=== PATIENT | male | born 1945 | race Caucasian/White ===

== ENCOUNTER 2016-10-26 11:21 | Inpatient (IN) | payer MEDICARE ==
[~2016-10-26] VITALS: Ht 182.9 cm; Wt 77.5 kg
[2016-10-26] VITALS (9 sets, daily range): BP systolic 127–156; BP diastolic 64–80
[~2016-10-26 11:21] MED LIST: ADVAIR DISK1 IN; ADVAIR HFA IN; ALDACTONE25 MG PO; ALTACE2.5 M1 PO; ASPIRIN ADULT L81 MG PO; ASPIRIN81 MG OR; COREG6.25 MG PO; DIGOXIN0.25 MG; DIOVAN80 MG OR; FENOFIBRATE54 MG PO; FLONASE NASAL50 MCG; IPRATROPIU0.5 MG/3 M NEB; LEVAQUIN750 MG PO; MEDDOSEPAK PO; NEXIUM 24HR20 MG PO; NEXIUM40 MG PO; NICOTINE EX; NITROGLYCER0.2 MG/H1 SL; PERCOCET 10/31 COMBO PO; PLAVIX75 MG PO; PREDNISONE10 MG PO; PREDNISONE20 MG PO; PROAIR HFA IN; PROAIR HFA PO; SIMVASTATIN40 MG PO; STERAPRED DS10 MG PO; STIOLTO RESPIMA1 AER IN; SYMBICORT1 AE1 IN; TESSALON PER100 MG PO; TORSEMIDE20 M1 PO; XOPENEX1.25 MG IN; ZETIA10 MG OR; ZITHROMAX500 MG PO; ZOCOR20 MG OR; ZPAK PO
--- NOTE | 2016-10-26 11:21 | NUR ---
PT TO ROOM 9 VIA STRETCHER BY EMS. PT ARRIVES IN RESP DISTRESS.
--- NOTE | 2016-10-26 11:30 | NUR ---
SAO2 DOWN TO 76% WHEN O2 TURNED OFF
--- NOTE | 2016-10-26 11:43 | NUR ---
PT IMMEDIATELY TO ROOM 9 VIA STRETCHER BY EMS. PT DISPLAYS LABORED BREATHING, ACCESSORY MUSCLE USE AND TRIPOD POSITIONING NOTED.
[2016-10-26 11:52] LABS: HEMATOCRIT 43.5 % (39.0-50.0); HEMOGLOBIN 14.3 g/dl (14.0-18.0); IMMATURE GRANULOCYTES 0.4 % (0.0-1.0); MEAN CELL VOLUME 91.8 fL CALC (80.0-100.0); MEAN CORPUSCULAR HGB 30.2 pG CALC (26.0-32.0); MEAN CORPUSCULAR HGB CONC 32.9 g/L CALC (32.0-36.0); NEUT# 10.77 thou/uL (1.82-7.42); RED BLOOD COUNT 4.74 mill/uL (4.70-6.10)
[2016-10-26 12:21] LABS: ALBUMIN 4.4 g/dL (3.2-5.0); ALKALINE PHOSPHATASE 47 u/l (38-126); BILIRUBIN, TOTAL 1.2 mg/dL (0.0-1.4); BUN 10 mg/dL (8-23); BUN/CREATININE RATIO 11 (12-20 (CALC)); CALCIUM 9.8 mg/dL (8.4-10.2); CARBON DIOXIDE 27 mmol/l (22-30); CHLORIDE 102 mmol/l (95-108); CREATININE 0.9 mg/dL (0.7-1.3); GFR > 60 ML/MIN (>=60 (CALC)); GFR FOR AFR.AMER. > 60 ML/MIN (>=60 (CALC)); GLUCOSE 122 mg/dL (82-115); SGOT/AST 23 u/l (19-48); SGPT/ALT 32 u/l (11-66); SODIUM 138 mmol/l (137-146); TOTAL PROTEIN 7.1 g/dL (6.3-8.2)
[2016-10-26 12:22] LABS: ANION GAP 14 (6-22 (CALC)); POTASSIUM 5.4 mmol/l (3.5-5.1)
[2016-10-26 12:32] LABS: MYOGLOBIN 102 ng/mL (0 - 121)
--- NOTE | 2016-10-26 12:40 | NUR ---
PT RESTING ON STRETCHER, BIPAP IN USE. AT BEDSIDE. PT BREATHING UNLABORED AT THIS TIME. VSS AT THIS TIME. MOUTH CARE PROVIDED WITH WET ORAL SWABS. CALL LIGHT IN REACH.
--- NOTE | 2016-10-26 13:30 | NUR ---
ADJUSTED PT POSITION IN BED. PROVIDED MOUTH CARE PER PT REQUEST. DENIES FURTHER COMPLAINTS. THANKS STAFF FOR CARE.
--- NOTE | 2016-10-26 14:00 | NUR ---
BIPAP D/C PER ORDER BY DR GALICIA. PT TOLERATING WELL. NO DISTRESS NOTED.
[2016-10-26] MEDS ORDERED: AZITHROMYCIN1 GM PO (14:12)
[2016-10-26] MEDS ORDERED: LASIX 20 MG20 MG/TAB PO (14:13)
[2016-10-26] MEDS ORDERED: CARVEDILOL6.25 MG PO (14:13)
[2016-10-26] MEDS ORDERED: PROAIR RES108 MCG/AC NEB (14:14)
[2016-10-26] MEDS ORDERED: NEXIUM2.5 MG PO (14:14)
--- NOTE | 2016-10-26 14:35 | NUR ---
PT RESTING ON STRETCHER. PT TOLERATING NC WELL. NO DISTRESS NOTED. VSS.
--- NOTE | 2016-10-26 14:47 | NUR ---
PT RESTING ON STRETCHER. IVF INFUSING. DENIES COMPLAINTS. CALL LIGHT IN REACH.
--- NOTE | 2016-10-26 15:02 | NUR ---
PT C/O "NOT ABLE TO GET ENOUGH AIR". RR 22. RESP EVEN AND UNLABORED. NO RETRACTIONS. SLIGHT ACCESSORY MUSCLE USE. LUNG SOUNDS WHEEZING THROUGHOUT. SAO2 100% ON 2L NC. NOTIFIED.
--- NOTE | 2016-10-26 15:45 | NUR ---
PT COMPLETED NEB TX. PT CONTINUES TO REPORT, "I JUST FEEL LIKE I CAN'T GET AIR." SPO2 100% RR WNL. DR GALICIA NOTIFIED. PT STATES "I JUST WANT TO WEAR THE BIPAP AGAIN". DR GALICIA NOTIFIED. RESP TX CALLED. I WANT "
--- NOTE | 2016-10-26 16:00 | NUR ---
PT PLACED BACK ON BIPAP MACHINE. TOLERATING WELL.
--- NOTE | 2016-10-26 17:05 | NUR ---
REPORT PROVIED TO KARLO FARFAN ON ICU.
--- NOTE | 2016-10-26 17:29 | NUR ---
PT TRANSFERRED TO ICU IN STABLE CONDITION VIA STRETCHER.
--- NOTE | 2016-10-26 17:30 | NUR ---
PT ARRIVED TO ROOM 8 VIA STRETCHER AND ONE PERSON ASSISTANCE FROM THE ER. PT AMBULATORY FROM STRETCHER TO BED. WEIGHT IS 85.6KG ON BED SCALE. PT IS ALERT AND ORIENTATED. FALLS SHEET AND BELONGINGS SHEET SIGNED. PT ORIENTATED TO ROOM, RIGHTS, RESPONSIBILITIES AND CALL LIGHT. ASSESSMENT PERFORMED, HISTORY OBTAINED. PT IS ON 2L NC AT THIS TIME. STATES "I WILL WAIT ON BIPAP, I FEEL OK WITH THE NC." PT IS USING ACCESSORY MUSCLES TO BREATHE. RESPIRATIONS ARE LABORED BUT EVEN. 02 SAT IS 97%. WILL CONTINUE TO MONITOR.
--- NOTE | 2016-10-26 18:50 | NUR ---
RECEIVED REPORT FROM DAHLIA BETANCOURT RN; ASSUMED PT CARE; FAMILY AT BEDSIDE SAYING GOOD BY TO PT; INTRODUCED SELF TO PT; DENIES ANY NEEDS AT THIS TIME; RESP EVEN AND UNLABORED; ENCOURAGED TO CALL IF NEEDED. WILL CONTINUE TO MONITOR.
--- NOTE | 2016-10-26 20:10 | NUR ---
PT IS ALERT AND ORIENTED X3; DENIES ANY PAIN OR SOB; C/O OF SHOE HANDLER COUGH AT THIS TIME AND IS REQUESTING SOMETHIG TO RELIEVE IT; RESP ARE EVEN AND UNLABORED; LUNGS ARE WHEEZE ON AUSCULTATION; ABDOMINAL BREATHING NOTED; TREMORS NOTED ON BUE; SKIN IS INTACT; AFEBRILE, SR ON MONITOR; BP 129/67, 100% ON 2LPM; EXPLAINED CALL CARVAJAL AND PLAN OF CARE; VOICES UNDERSTANDING WILL CONTINUE TO MONITOR.
--- NOTE | 2016-10-26 23:39 | NUR ---
PT A&O X3; RESP EVEN AND UNLABORED; DENIES NEEDS OR SOB OR PAIN, RECEIVED A BREATHING TX AND STATES "I CAN BREATH BETTER NOW." OCCASIONALLY INFANTRY WEAPONS OFFICER COUGH, MEDICATED WITH ROBITUSSIN, VSS, O2SATS 99% ON 2LPM NC; CALL CARVAJAL IS AT REACH, WILL CONTINUE TO MONITOR.
[2016-10-27] VITALS (13 sets, daily range): BP systolic 102–165; BP diastolic 50–72
--- NOTE | 2016-10-27 02:00 | NUR ---
PT AWAKE, A/O X3; REQUESTING A CUP OF BLACK COFFEE; DENIES SOB OR DISCOMFORT; VOIDED 300 OF CLEAR YELLOW URINE AT THIS TIME; RESP ARE UNLABORED; SATTING 100% ON 2LPM NC. CALL LIGHT AT REACH; WILL CONTINUE TO MONITOR.
--- NOTE | 2016-10-27 03:50 | NUR ---
PT AWAKE; REQUESTING A CUP OF BLACK COFFEE; LAB TECHN IN DRAWING BLOOD SAMPLES; CONTINUES ART HISTORY INSTRUCTOR COUGHING OCCASIONALLY; VSS, AFEBRILE; SATTING AT 95% 2LPM NC; RESP ARE EVEN AND UNLABORED; SKIN NOTED ON LUE; STATES "IT IS FROM EDGE OF BP CUFF; PLACED A GAUZE; SEE PICTURE ON CHART FOR DETAILS. CALL CARVAJAL AT BEDSIDE; WILL CONTINUE TO MONITOR.
[2016-10-27 05:12] LABS: HEMATOCRIT 40.2 % (39.0-50.0); HEMOGLOBIN 13.4 g/dl (14.0-18.0); IMMATURE GRANULOCYTES 0.4 % (0.0-1.0); MEAN CELL VOLUME 91.4 fL CALC (80.0-100.0); MEAN CORPUSCULAR HGB 30.5 pG CALC (26.0-32.0); MEAN CORPUSCULAR HGB CONC 33.3 g/L CALC (32.0-36.0); NEUT# 8.1 thou/uL (1.82-7.42); RED BLOOD COUNT 4.4 mill/uL (4.70-6.10); RED CELL DISTRI WIDTH 16.7 % (11.5-15.5)
--- NOTE | 2016-10-27 05:30 | NUR ---
[facility] IV SITE; CATHETER INTACT; IV SITE FREE OF REDNESS OR EDEMA; NEW IV STARTED IN LT HAND #20G SALINE LOCK; FLUSHED WELL; PT TOLERATED ACTIVITY WELL; RESP ARE EVEN AND UNLABORED; WILL PROVIDE A RECLINER PER PT REQUEST.
[2016-10-27 05:40] LABS: ANION GAP 15 (6-22 (CALC)); BUN 16 mg/dL (8-23); BUN/CREATININE RATIO 18 (12-20 (CALC)); CALCIUM 9.9 mg/dL (8.4-10.2); CARBON DIOXIDE 27 mmol/l (22-30); CHLORIDE 101 mmol/l (95-108); CREATININE 0.9 mg/dL (0.7-1.3); GFR > 60 ML/MIN (>=60 (CALC)); GFR FOR AFR.AMER. > 60 ML/MIN (>=60 (CALC)); GLUCOSE 125 mg/dL (82-115); SODIUM 138 mmol/l (137-146)
--- NOTE | 2016-10-27 06:45 | NUR ---
REPORT RECEIVED FROM KARLO DONALD. PT IS AWAKE AND SITTING UPRIGHT IN BED. PT DOES NOT APPEAR TO BE IN DISTRESS OR SHOW ANY S/S OF SOB. 02 @2L NC SPO2 IS >92%. CALL LIGHT WITHIN REACH. WILL CONTINUE TO MONITOR.
--- NOTE | 2016-10-27 08:30 | NUR ---
PT GIVEN AM MEDICATION AT THIS TIME. OOB TO CHAIR, PT STATES HE HAS ANXIETY. WILL NOTIFY
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
--- NOTE | 2016-10-27 17:05 | NUR ---
PT HAS SAT UPRIGHT IN CHAIR FOR ENTIRE SHIFT. VSS. WEARING O2 @2L VIA NC. VOICES NO CONCERN. WILL CONTINUE TO MONITOR.
--- NOTE | 2016-10-27 18:50 | NUR ---
RECEIVED REPORT FROM DAVEY BETANCOURT RN; ASSUMED PT CARE.
--- NOTE | 2016-10-27 19:00 | NUR ---
PT C/O BURNING FEELING ON IV SITE; ZITROMAX INFUSING AT RX RATE; FLUSHED SITE WITH NS FLUSH, FLUSHES WELL WITH GOOD ASPIRATION; NO REDNESS OR SIGNS OF INFILTRATION/EXTRAVASATION NOTED; SLOWED INFUSION WILL CONTINUE TO MONITOR.
--- NOTE | 2016-10-27 19:35 | NUR ---
PT FOUND SITTING UP IN THE RECLINER; AT BEDSIDE; STATES "WITH ANY ACTIVITY I FEEL THAT I CAN'T BREATHE." VSS AT THIS TIME; 02SATS 99% ON 2LPM VIA NC; EXPLAINED MED SCHEDULE; VOICES UNDERSTANDING; PROVIDED A SPECIMEN CUP FOR SPUTUM SAMPLE; STATES HAS BEEN COUGHING UP SOME THICK GREEN SPUTUM; BILATERAL DIMINISHED LUNGS SOUNDS ON AUSCULTATION; CALL CARVAJAL IS AT REACH. WILL CONTINUE TO MONITOR.
--- NOTE | 2016-10-27 21:17 | NUR ---
CONTINUES COMPLAINING OF BURNING FEELING ON IV SITE; FLUSHED IV WITH NS; NO REDNESS INFILTRATION OR EXTRAVASATION NOTED; SLOWED THE INFUSION RATE MORE AND PUT A ICE PACK ON SITE, USED A PILLOW CASE BARRIER; WILL CONTINUE TO MONITOR CLOSELY.
--- NOTE | 2016-10-27 22:15 | NUR ---
RT IN PT ROOM ADMINISTERING A BREATHING TX.
[2016-10-28] VITALS (9 sets, daily range): BP systolic 135–164; BP diastolic 66–89
--- NOTE | 2016-10-28 00:27 | NUR ---
MEDICATED WITH SOLUMEDROL PER EMAR; PT LYING ON LEFT SIDE; REFUSES TO WEAR BP CUFF STATES "CUFF IS TEARING THE SKIN ON MY ARM." CHECKED BP AND REMOVED BP REQUESTED BY PT. SR-SB ON MONITOR WITH HR 50-72; DENIES PAIN AND SOB; APPEARS IN NO DISTRESS AT THIS TIME; RESP EVEN AND UNLABORED; FLUSHED IV SITE AND FLUSHES WELL DENIES BURNING/DISCOMFORT AT SITE, NO SIGNS OF EDEMA NOTED; CALL CARVAJAL IS AT REACH.
--- NOTE | 2016-10-28 02:10 | NUR ---
ASSISTED PT OOB TO BSC; VOIDED 400 ML OF CLEAR PALE URINE; IS SITTING ON SIDE OF BED AT THIS TIME; STARTING CALLING VIC, WHEN ASKED WHO IS THRESA, STATED "MY ." SEEMED CONFUSE, AND REORIENTED HIM TO ENVIRONMENT; STATED NAME, , BUT THOUGHT THAT WAS AT HOME WITH STATED "I THOUGHT YOU WERE THRESA AND THAT I WAS AT HOME, BUT NOW I KNOW I AM AT THE HOSPITAL." RESP ARE EVEN AND LABORED; INSTRUCTED ON BREATHING TECHN; CALL CARVAJAL IS AT REACH WILL COTINUE TO MONITOR.
--- NOTE | 2016-10-28 03:00 | NUR ---
PT MOVED FROM R8 TO B5 D/T MONITOR NOT COMMUNICATING SIGNAL TO NARROW FABRIC CALENDERER; CELL TENDER HELPER NOTIFIED; PT TOLERATED ACTIVITY WELL; SATTING AT 99% ON 2L NC AT THIS TIME; BP 146/80; MILD LABORED RESPIRATIONS NOTED; WILL CONTINUE TO MONITOR.
--- NOTE | 2016-10-28 04:35 | NUR ---
LYING SUPINE IN BED WITH EYES CLOSED; RESPONDS TO STIMULI; OFFERS NO NEW COMPLAINTS; RESP ARE EVEN AND UNLABORED; SOME LOW VOLTAGE TECHNICIAN COUGH NOTED; SR ON MONITOR, HR 76, O2SATS >94% ON 2L NC. WILL CONTINUE TO MONITORL.
--- NOTE | 2016-10-28 06:13 | NUR ---
MEDICATED PT WITH SOLUMEDROL PER EMAR; PT SITTING UP ON SIDE OF BED IN TRIPOD POSITION; RESP ARE EVEN AND LABORED; O2SATS 95%; VOIDED 300 ML OF CLEAR YELLOW URINE; INSTRUCTED ON BREATHING EXERCISES; PT DEMOSTRATING BREATHING TECHN; WILL CONTINUE TO MONITOR. IV SITE REMAINS PATENT AND FLUSHES WELL NO SIGNS OF EDEMA OR REDNESS.
--- NOTE | 2016-10-28 07:00 | NUR ---
REPORT RECIEVED FROM SHABANA RN; PT SITTING UP AT BEDSIDE WITH BREATHING TX IN PROGRESS; NO S/S OF DISTRESS NOTED; PT DENIES ANY NEEDS AT THIS TIME; PT ENCOURAGED TO CALL FOR ANY ASSISTANCE NEEDED; CALL LIGHT WITHIN REACH; WILL CONTINUE TO MONITOR
[2016-10-28 07:05] LABS: ANION GAP 15 (6-22 (CALC)); BUN 27 mg/dL (8-23); BUN/CREATININE RATIO 29 (12-20 (CALC)); CALCIUM 9.6 mg/dL (8.4-10.2); CARBON DIOXIDE 26 mmol/l (22-30); CHLORIDE 103 mmol/l (95-108); CREATININE 0.9 mg/dL (0.7-1.3); GFR > 60 ML/MIN (>=60 (CALC)); GFR FOR AFR.AMER. > 60 ML/MIN (>=60 (CALC)); GLUCOSE 132 mg/dL (82-115); MAGNESIUM 2.4 mg/dL (1.6-2.3); SODIUM 139 mmol/l (137-146)
[2016-10-28 07:09] LABS: POTASSIUM 5.3 mmol/l (3.5-5.1)
--- NOTE | 2016-10-28 08:35 | NUR ---
PT MEDICATED WITH AM MEDS AT THIS TIME; ASSESSMENT COMPLETED; #20 TO LH FLUSHED W/O RESISTANCE; PT DENIES ANY PAIN OR SOB AT THIS TIME; PT STATES "I MIGHT WANT TO TRY WEARING THAT BREATHING MACHINE LATER"; PT DENIES ANY OTHER NEEDS AT THIS TIME; CALL LIGHT WITHIN REACH; WILL CONTINUE TO MONITOR
--- NOTE | 2016-10-28 10:21 | NUR ---
PT RESTING IN BED; NO S/S OF DISTRESS NOTED; O2 NC IN PLACE; PT DENIES ANY PAIN OR SOB AT THIS TIME; SR 77 ON BRANCH OPERATION EVALUATION MANAGER; VSS; CALL LIGHT WITHIN REACH; WILL CONTINUE TO MONITOR
--- NOTE | 2016-10-28 10:30 | NUR ---
PRELIMINARY BLOOD CULTURES GROWING GRAM POSITIVE COCCI. PATIENT CURRENTLY HAS SOME COVERAGE WITH AZITHROMYCIN AND ROCEPHIN. CALLED RESULTS TO DR HARO.
--- NOTE | 2016-10-28 11:42 | NUR ---
Vancomycin dosing Age: 71 years Weight: 85.6 kg Height: 182.88 cm Gender: Male SCR: 0.9 mg/dl Dosing weight: 85.6 kg IBW: 77.60 kg CRCL (ml/min): 82.6 William (hr-1): 0.073 Half-life (hrs): 9.50 Vd (liters): 59.92 (factor: 0.7 L/kg) Vancomycin 1250 mg q12 hrs to produce a predicted peak of 33 mcg/ml and a predicted trough of 16 mcg/ml based on (Population-based pharmacokinetic analysis). Vancomycin trough on 10/29/16 at 2330, 30 minutes prior to dose.
--- NOTE | 2016-10-28 14:25 | NUR ---
FROM ICU VIA WHEELCHAIR ACCOMPANIED BY DAQUAN DIETRICH. PT AMBULATED TO BED WITH STEADY GAIT. EXERTIONAL SOB NOTED. VOICES NO NEEDS AT THIS TIME. ORIENTED TO ROOM AND CALL SYSTEM. SAFETY PRECAUTIONS REINFORCED. BED IN LOWEST POSITION WITH WHEELS LOCKED. CALL LIGHT WITHIN REACH. WILL CONTINUE TO MONITOR.
--- NOTE | 2016-10-28 15:30 | NUR ---
SITTING IN BEDSIDE RECLINER. MEDICATED WITH ROBITUSSIN PO FOR C/O PRODUCTIVE COUGH. PO FLUIDS OFFERED. CALL LIGHT WITHIN REACH. WILL CONTINUE TO MONITOR.
--- NOTE | 2016-10-28 21:30 | NUR ---
PT RESTING IN RECLINER WITH SPOUSE AT BEDSIDE;PT DENIES ANY PAINS OR DISCOMFORTS AT THIS TIME;02 ON @ 2 LITERS HUMIDIFIED VIA NC,PURSED LIP BREATHING TECHNIQUE RE-EDUCATED;IV SITE TO LEFT HAND FLUSHED AND PATENT;PRODUCTIVE COUGH NOTED;PTS RIGHT ARM NOT TO BE USED DUE TO PRIOR ULNA TRANSPLANT;ASSESSMENT COMPLETED;SKIN TEAR TO LEFT UPPER ARM,DRESSING CDI;SAFETY PRECAUTIONS REINFORCED;PT EDUCATED TO CALL FOR ASSISTANCE IF NEEDED;CALL LIGHT WITHIN REACH;WILL CONTINUE TO MONITOR
--- NOTE | 2016-10-29 00:15 | NUR ---
PT APPEARS TO BE SLEEPING AT THIS TIME;WOKE PT TO ADMINISTER SCHEDULED MEDICATION;PT DENIES ANY PAIN;RESPIRATIONS EVEN AND UNLABORED ON 02 @ 2 LITERS HUMIDIFIED;URINAL EMPTIED OF 350CC OF CLEAR,YELLOW URINE;ADDITIONAL BLANKETS PROVIDED;FALL PRECAUTIONS IN PLACE;BED IN LOWEST POSITION WITH CALL LIGHT IN REACH;WILL CONTINUE TO MONITOR
[2016-10-29 05:42] VITALS: BP 150/78
--- NOTE | 2016-10-29 05:45 | NUR ---
PT RESTING IN RECLINER;PT DENIES ANY PAIN OR DISCOMFORTS;RESPIRATIONS EVEN AND UNLABORED ON 02 @ 2;VS OBTAINED;URINAL EMPTIED OF CLEAR,YELLOW URINE;PT DENIES ANY OTHER NEEDS AT THIS TIME;CALL LIGHT WITHIN REACH;WILL CONTINUE TO MONITOR
[2016-10-29 07:04] LABS: ANION GAP 13 (6-22 (CALC)); BUN 26 mg/dL (8-23); BUN/CREATININE RATIO 32 (12-20 (CALC)); CALCIUM 9.5 mg/dL (8.4-10.2); CARBON DIOXIDE 28 mmol/l (22-30); CHLORIDE 101 mmol/l (95-108); CREATININE 0.8 mg/dL (0.7-1.3); GFR > 60 ML/MIN (>=60 (CALC)); GFR FOR AFR.AMER. > 60 ML/MIN (>=60 (CALC)); GLUCOSE 130 mg/dL (82-115); POTASSIUM 4.8 mmol/l (3.5-5.1); SODIUM 138 mmol/l (137-146)
--- NOTE | 2016-10-29 07:14 | NUR ---
RECEIVED BEDSIDE REPORT FROM DEBI RAMIREZ. SITTING IN BEDSIDE CHAIR. RESPS EVEN AND UNLABORED ON O2 VIA NC. DENIES PAIN OR DISCOMFORT. PO FLUIDS OFFERED. PLAN OF CARE DISCUSSED. SAFETY PRECAUTIONS REINFORCED. BED IN LOWEST POSITION WITH WHEELS LOCKED. CALL LIGHT WITHIN REACH. ENCOURAGED PT TO CALL FOR ANY NEEDS.
[2016-10-29 07:55] VITALS: BP 137/62
--- NOTE | 2016-10-29 10:50 | NUR ---
DR HARO IN TO SEE PT AND , NEW ORDERS RECEIVED.
--- NOTE | 2016-10-29 12:30 | NUR ---
SITTING IN BEDSIDE RECLINER. REPORTS EASIER TO BREATHE WHILE IN CHAIR, STATES HE SPENDS MOST OF HIS TIME IN CHAIR AT HOME EVEN SLEEPING IN CHAIR MOST NIGHTS. SHORTNESS OF BREATH CONTINUES WITH EXERTION WHILE ON O2 VIA NC. UNABLE TO SPEAK IN COMPLETE SENTENCES. PO FLUIDS OFFERED. CALL LIGHT WITHIN REACH. WILL CONTINUE TO MONITOR.
[2016-10-29 15:08] VITALS: BP 141/72
--- NOTE | 2016-10-29 16:15 | NUR ---
SITTING IN BEDSIDE RECLINER. EXERTIONAL SOB NOTED. VOICES NO NEEDS AT THIS TIME. PO FLUIDS OFFERED. CALL LIGHT WITHIN REACH.
[2016-10-29 19:16] VITALS: BP 156/52
--- NOTE | 2016-10-29 19:26 | NUR ---
PT. SITTING UP IN THE CHAIR, NO DISTRESS NOTED. O2 INFUSING PER NC PER ORDER. ASSESSMENT COMPLETED. VSS. IV SITE PATENT AND SL. TEDS IN PLACE TO BILATERAL LE. PO FLUIDS OFFERED. URINAL EMPTIED OF 200 ML OF CLEAR YELLOW URINE. ENCOURAGED TO CALL FOR ANY NEEDS. CALL LIGHT IS IN REACH. WILL CONTINUE TO MONITOR.
--- NOTE | 2016-10-29 21:20 | NUR ---
PT. SITTING UP IN CHAIR WATCHING TV, NO DISTRESS NOTED. DENIES NEEDS. SNACK PROVIDED. CALL LIGHT AND URINAL ARE WITHIN REACH. WILL CONTINUE TO MONITOR.
--- NOTE | 2016-10-30 00:10 | NUR ---
PT. SITTING UP IN BED WITH NO DISTRESS NOTED. DENIES NEEDS. SCHED VANCOMYCIN HUNG. PO FLUIDS OFFERED. ENCOURAGED TO CALL FOR ANY NEEDS. CALL LIGHT IS IN REACH.
--- NOTE | 2016-10-30 00:20 | NUR ---
[id number] PT. ARRIVED TO THE FLOOR VIA STRETCHER ACCOMPANIED BY ER NURSE MARYAM. PT. STABLE AND ABLE TO AMBULATE TO BED WITH STEADY GAIT. VS OBTAINED. PT. REPORTING ABDOMINAL PAIN IS 6/10, AND WAS MEDICATED PRIOR TO ARRIVAL TO THE FLOOR WITH PERCOCET, AND DENIES NEEDS FOR DILAUDID AT THIS TIME.ASSESSMENT COMPLETED. EL HOSE APPLIED TO BILATERAL LE. PER PT. RECENT RIGHT KNEE REPLACEMENT DONE ON 10/06/16, SLIGHT SWELLING NOTED, NO REDNESS NOTED. PT. UPDATED WITH POC. IV SITE PATENT AND INFUSING LR AT 150ML/HR , NO REDNESS OR SWELLING NOTED TO SITE. INSTRUCTED TO CALL FOR ANY NEEDS. CALL LIGHT IS IN REACH. WILL CONTINUE TO MONITOR.
[2016-10-30 03:05] VITALS: BP 152/83
--- NOTE | 2016-10-30 03:05 | NUR ---
PT. SITTING UP IN CHAIR, NO DISTRESS NOTED. O2 INFUSING, SPO2 95%. VS OBTAINED. CALL LIGHT IS IN REACH. VOICES NO CONCERNS. WILL CONTINUE TO MONITOR.
--- NOTE | 2016-10-30 05:35 | NUR ---
DRESSING CHANGED TO CORINNE AND PICTURE OBTAINED FOR CHART. VOICES NO CONCERNS. CALL LIGHT IS IN REACH.
[2016-10-30 06:51] LABS: HEMATOCRIT 41.3 % (39.0-50.0); HEMOGLOBIN 14.2 g/dl (14.0-18.0); MEAN CELL VOLUME 89.4 fL CALC (80.0-100.0); MEAN CORPUSCULAR HGB 30.7 pG CALC (26.0-32.0); MEAN CORPUSCULAR HGB CONC 34.4 g/L CALC (32.0-36.0); RED BLOOD COUNT 4.62 mill/uL (4.70-6.10); RED CELL DISTRI WIDTH 16.4 % (11.5-15.5)
--- NOTE | 2016-10-30 07:00 | NUR ---
SHIFT CHANGE REPORT FROM HUBERT HOWE AWAKE ALERT AND ORIENTED SITTING UP IN RECLINER, O2 @ 2L VIA NC IN PLACE, BREATHING EVEN AND NON-LABORED AT THIS TIME, TELE MONITOR IN PLACE, CALL CARVAJAL IN REACH.
[2016-10-30 07:04] LABS: ANION GAP 13 (6-22 (CALC)); BUN 25 mg/dL (8-23); BUN/CREATININE RATIO 28 (12-20 (CALC)); CALCIUM 9.6 mg/dL (8.4-10.2); CARBON DIOXIDE 28 mmol/l (22-30); CHLORIDE 100 mmol/l (95-108); CREATININE 0.9 mg/dL (0.7-1.3); GFR > 60 ML/MIN (>=60 (CALC)); GFR FOR AFR.AMER. > 60 ML/MIN (>=60 (CALC)); GLUCOSE 120 mg/dL (82-115); POTASSIUM 4.8 mmol/l (3.5-5.1); SODIUM 136 mmol/l (137-146)
--- NOTE | 2016-10-30 07:40 | NUR ---
Vancomycin dosing Current dose being given: 1250 mg Current dosing interval: 12 hrs Current infusion time (hrs): 2 Single level Trough Data: Trough level obtained: 12 mcg/ml Timing of trough - Number of hours before next dose: 0.5 Hrs Desired peak: 30 mcg/ml Desired trough: 15 mcg/ml New rate constant (greta): 0.088 hr-1 New half-life: 7.88 Hours New Vd from levels: 59.22 Liters (0.7 L/kg) Vancomycin 1500 mg q 12 hrs. Infuse over 2 hrs Expected Cpeak: 35 mcg/ml Expected Ctrough: 15 mcg/ml next vancomycin trough on 11/01/16 at 2330
[2016-10-30 07:47] VITALS: BP 160/79
--- NOTE | 2016-10-30 11:54 | NUR ---
SITTING UP IN RECLINER, O2 IN PLACE, REQUESTED RAZOR FOR SHAVING, NO C/O PAIN, NEEDS ADDRESSED, CALL CARVAJAL IN REACH.
[2016-10-30 15:20] VITALS: BP 151/75
--- NOTE | 2016-10-30 15:37 | NUR ---
INFORMED OF NEW ORDERS, AMBULATING HALLWAYS AT THIS TIME, WILL CONTINUE TO MONITOR.
[2016-10-30 20:00] VITALS: BP 164/80
--- NOTE | 2016-10-30 21:30 | NUR ---
PT SITTING IN RECLINER CHAIR A/O X3, RESPIRATIONS EVEN AND UNLABORED ON OXYGEN. IV TO LAC DC'D DUE TO LEAKING, NEW IV STARTED TO CORINNE #22 ON 1ST ATTEMPT, TOLERATED WELL. URINAL AT BED PT'S SIDE. DENIES PAIN OR DISCOMFORT. CALL LIGHT IN REACH.
--- NOTE | 2016-10-31 00:10 | NUR ---
VANCOMYCIN INFUSING TO CORINNE WITH NO COMPLICATIONS. RESPIRATIONS EVEN AND UNLABORED.
[2016-10-31 04:50] VITALS: BP 158/89
--- NOTE | 2016-10-31 06:00 | NUR ---
SITTING IN RECLINER CHAIR, RESPIRATIONS EVEN AND UNLABORED. VOICES NO CONCERNS.
--- NOTE | 2016-10-31 07:29 | NUR ---
REPORT RECIEVED FROM JAMES PARKER; PT SITTING UP IN CHAIR AT BEDSIDE; NO S/S OF DISTRESS NOTED; PT REQUESTING COFFEE AT THIS TIME; DENIES ANY OTHER NEEDS AT THIS TIME; CALL LIGHT WITHIN REACH; WILL CONTINUE TO MONITOR
[2016-10-31 08:30] VITALS: BP 143/68
[2016-10-31 08:55] VITALS: BP 143/68
--- NOTE | 2016-10-31 10:40 | NUR ---
PT OFF FLOOR TO XRAY FOR PICC LINE INSERTION; PT IN STABLE CONDITION AT THIS TIME;
--- NOTE | 2016-10-31 11:20 | NUR ---
PT RETURNED TO FLOOR AT THIS TIME FROM XRAY VIA WC; DUAL LUMEN PICC IN PLACE FLUSHED WITHOUT RESISTANCE AND BLOOD RETURN POSITIVE; PT DENIES ANY NEEDS AT THIS TIME; CALL LIGHT WITHIN REACH; WILL CONTINUE TO MONITOR
--- NOTE | 2016-10-31 12:20 | NUR ---
6 MIN WALKING TEST COMPLETED AT THIS TIME PT 97% RESTING AND 88% DURING AMBULATION; RECOVERED TO 93% WITHIN 2 MINS WITH O2; PT DENIES ANY PAIN OR DISCOMFORT AT THIS TIME; CALL LIGHT WITHIN REACH; WILL CONTINUE TO MONITOR
[2016-10-31] MEDS ORDERED: DAPTOMYCIN500 MG IV (13:36)
[2016-10-31] MEDS ORDERED: PREDNISONE10 MG PO (13:36)
[2016-10-31] MEDS ORDERED: ALPRAZOLAM0.25 MG PO (13:36)
[2016-10-31] MEDS ORDERED: BIOTUSSIN PO (13:36)
[2016-10-31] MEDS ORDERED: ALBUTEROL SUL0.083 % NEB (13:36)
[2016-10-31] MEDS ORDERED: LIPITOR20 MG PO (13:38)
[2016-10-31] MEDS ORDERED: AMLODIPINE BESYL5 MG PO (13:38)
--- NOTE | 2016-10-31 16:15 | NUR ---
Discharge instructions given. Patient verbalizes understanding of same. Discharged in stable condition via Wheelchair to Home with family. All belongings sent with pt.
== END 2016-10-31 16:15 | disposition home health service (06) | DRG 189 ==
LOC: ENPENDDIS → ED 11:21 → ED-I 11:58 → ED 11:58 → ED-I 14:14 → ED 15:16 → ICU 15:17 → MS2 15:17 → ICU 17:05 → MS2 10-28 14:25
PROVIDERS: Emergency Medicine; Internal Medicine; ADMIT Internal Medicine; ATTEND Internal Medicine
PROC: 5A09357 Assistance with Respiratory Ventilation, Less than 24 Consecutive Hours, Continuous Positive Airway Pressure (ICD-10-PCS; principal; 2016-10-26)
PROC: 05HC33Z Insertion of Infusion Device into Left Basilic Vein, Percutaneous Approach (ICD-10-PCS; 2016-10-31)
PROC: B51NZZA Fluoroscopy of Left Upper Extremity Veins, Guidance (ICD-10-PCS; 2016-10-31)
DX: J96.22 Acute and chronic respiratory failure with hypercapnia (principal); Z99.81 Dependence on supplemental oxygen; R78.81 Bacteremia; J44.1 Chronic obstructive pulmonary disease with (acute) exacerbation; J96.21 Acute and chronic respiratory failure with hypoxia; I10 Essential (primary) hypertension; E78.5 Hyperlipidemia, unspecified; I25.10 Atherosclerotic heart disease of native coronary artery without angina pectoris; F17.210 Nicotine dependence, cigarettes, uncomplicated; I25.2 Old myocardial infarction; Z96.619 Presence of unspecified artificial shoulder joint; Z95.5 Presence of coronary angioplasty implant and graft
CPT/HCPCS: J1650; J3370

== ENCOUNTER 2017-02-15 16:11 | Inpatient (IN) | payer MEDICARE ==
[~2017-02-15] VITALS: Ht 182.9 cm; Wt 78.9 kg
[~2017-02-15 16:11] MED LIST changes: +ALBUTEROL SUL0.083 % NEB; +ALPRAZOLAM0.25 MG PO; +AMLODIPINE BESYL5 MG PO; +AZITHROMYCIN1 GM PO; +BIOTUSSIN PO; +CARVEDILOL6.25 MG PO; +DAPTOMYCIN500 MG IV; +LASIX 20 MG20 MG/TAB PO; +LIPITOR20 MG PO; +NEXIUM2.5 MG PO; +PROAIR RES108 MCG/AC NEB
[2017-02-15 16:46] VITALS: BP 117/61
[2017-02-15 17:18] LABS: HEMATOCRIT 41.6 % (39.0-50.0); IMMATURE GRANULOCYTES 0.7 % (0.0-1.0); MEAN CORPUSCULAR HGB 29.3 pG CALC (26.0-32.0); MEAN CORPUSCULAR HGB CONC 33.7 g/L CALC (32.0-36.0); NEUT# 16.72 thou/uL (1.82-7.42); RED BLOOD COUNT 4.78 mill/uL (4.70-6.10); RED CELL DISTRI WIDTH 14.2 % (11.5-15.5)
[2017-02-15 17:40] LABS: ALKALINE PHOSPHATASE 45 u/l (38-126); ANION GAP 17 (6-22 (CALC)); BUN 15 mg/dL (8-23); BUN/CREATININE RATIO 15 (12-20 (CALC)); CALCIUM 9.2 mg/dL (8.4-10.2); CARBON DIOXIDE 24 mmol/l (22-30); CHLORIDE 98 mmol/l (95-108); GFR > 60 ML/MIN (>=60 (CALC)); GFR FOR AFR.AMER. > 60 ML/MIN (>=60 (CALC)); GLUCOSE 157 mg/dL (82-115); POTASSIUM 4.1 mmol/l (3.5-5.1); SGOT/AST 12 u/l (19-48); SGPT/ALT 31 u/l (11-66); SODIUM 134 mmol/l (137-146); TOTAL PROTEIN 7.1 g/dL (6.3-8.2)
[2017-02-15 18:19] LABS: URINE BILIRUBIN - DIPSTICK NEGATIVE (NEGATIVE); URINE BLOOD DIPSTICK SMALL (NEGATIVE); URINE CLARITY CLEAR; URINE COLOR YELLOW; URINE GLUCOSE - DIPSTICK NEGATIVE (NEGATIVE); URINE KETONE NEGATIVE (NEGATIVE); URINE LEUK ESTERASE NEGATIVE (NEGATIVE); URINE NITRITE - DIPSTICK NEGATIVE (Negative); URINE PROTEIN - DIPSTICK NEGATIVE (NEG-TRACE)
[2017-02-15 18:28] LABS: URINE RBC 0-2 RBC/hpf (0-5); URINE WBC 0-2 WBC/hpf (0-5)
[2017-02-15 19:02] VITALS: BP 123/69
[2017-02-15] MEDS ORDERED: NITROSTAT0.4 MG SL (19:50)
[2017-02-15 23:25] VITALS: BP 110/65
[2017-02-16 04:00] VITALS: BP 160/86
[2017-02-16 06:05] LABS: HEMATOCRIT 39.8 % (39.0-50.0); HEMOGLOBIN 13.5 g/dl (14.0-18.0); IMMATURE GRANULOCYTES 0.6 % (0.0-1.0); MEAN CELL VOLUME 87.3 fL CALC (80.0-100.0); MEAN CORPUSCULAR HGB 29.6 pG CALC (26.0-32.0); MEAN CORPUSCULAR HGB CONC 33.9 g/L CALC (32.0-36.0); NEUT# 13.87 thou/uL (1.82-7.42); RED BLOOD COUNT 4.56 mill/uL (4.70-6.10)
[2017-02-16 06:18] LABS: ANION GAP 14 (6-22 (CALC)); BUN 16 mg/dL (8-23); BUN/CREATININE RATIO 21 (12-20 (CALC)); CARBON DIOXIDE 23 mmol/l (22-30); CHLORIDE 102 mmol/l (95-108); CREATININE 0.8 mg/dL (0.7-1.3); GFR > 60 ML/MIN (>=60 (CALC)); GFR FOR AFR.AMER. > 60 ML/MIN (>=60 (CALC)); GLUCOSE 189 mg/dL (82-115); POTASSIUM 4.9 mmol/l (3.5-5.1); SODIUM 134 mmol/l (137-146)
[2017-02-16 07:44] VITALS: BP 110/57
[2017-02-16 11:19] VITALS: BP 104/59
[2017-02-16 17:30] VITALS: BP 109/53
[2017-02-16 20:00] VITALS: BP 113/61
[2017-02-17] VITALS (7 sets, daily range): BP systolic 105–152; BP diastolic 50–69
[2017-02-17 06:12] LABS: HEMOGLOBIN 12.1 g/dl (14.0-18.0); IMMATURE GRANULOCYTES 0.6 % (0.0-1.0); MEAN CELL VOLUME 87.4 fL CALC (80.0-100.0); MEAN CORPUSCULAR HGB 29.4 pG CALC (26.0-32.0); MEAN CORPUSCULAR HGB CONC 33.6 g/L CALC (32.0-36.0); NEUT# 15.76 thou/uL (1.82-7.42); RED BLOOD COUNT 4.12 mill/uL (4.70-6.10)
[2017-02-17 06:21] LABS: ANION GAP 15 (6-22 (CALC)); BUN 19 mg/dL (8-23); BUN/CREATININE RATIO 22 (12-20 (CALC)); CALCIUM 8.9 mg/dL (8.4-10.2); CARBON DIOXIDE 23 mmol/l (22-30); CHLORIDE 102 mmol/l (95-108); CREATININE 0.9 mg/dL (0.7-1.3); GFR > 60 ML/MIN (>=60 (CALC)); GFR FOR AFR.AMER. > 60 ML/MIN (>=60 (CALC)); GLUCOSE 142 mg/dL (82-115); MAGNESIUM 2.2 mg/dL (1.6-2.3); POTASSIUM 4.1 mmol/l (3.5-5.1); SODIUM 136 mmol/l (137-146)
[2017-02-18 04:40] VITALS: BP 146/76
[2017-02-18 08:07] VITALS: BP 154/64
[2017-02-18 11:00] VITALS: BP 120/73
[2017-02-18] MEDS ORDERED: PREDNISONE50 MG PO (14:31)
[2017-02-18] MEDS ORDERED: CIPROFLOXACN750 MG PO (14:32)
[2017-02-18] MEDS ORDERED: ROBITUSSIN AC10 ML PO (14:37)
== END 2017-02-18 14:55 | disposition home or self-care (01) | DRG 190 ==
LOC: MS2 16:11 → ICU 02-16 15:57 → MS2 02-17 06:55
PROVIDERS: Internal Medicine; ADMIT Internal Medicine; ATTEND Internal Medicine
DX: J44.1 Chronic obstructive pulmonary disease with (acute) exacerbation (principal); J18.9 Pneumonia, unspecified organism; J96.20 Acute and chronic respiratory failure, unspecified whether with hypoxia or hypercapnia; J44.0 Chronic obstructive pulmonary disease with (acute) lower respiratory infection; I10 Essential (primary) hypertension; F17.210 Nicotine dependence, cigarettes, uncomplicated; I25.10 Atherosclerotic heart disease of native coronary artery without angina pectoris; E78.5 Hyperlipidemia, unspecified; Z95.5 Presence of coronary angioplasty implant and graft; Z87.01 Personal history of pneumonia (recurrent); Z99.81 Dependence on supplemental oxygen
CPT/HCPCS: Q9967

== ENCOUNTER 2017-06-05 20:20 | Emergency (ER) | payer MEDICARE ==
[~2017-06-05] VITALS: Ht 182.9 cm; Wt 81.8 kg
[~2017-06-05 20:20] MED LIST changes: +CIPROFLOXACN750 MG PO; +NITROSTAT0.4 MG SL; +PREDNISONE50 MG PO; +ROBITUSSIN AC10 ML PO
[2017-06-05 21:16] LABS: HEMATOCRIT 45.7 % (39.0-50.0); HEMOGLOBIN 14.8 g/dl (14.0-18.0); IMMATURE GRANULOCYTES 0.4 % (0.0-1.0); MEAN CELL VOLUME 94.6 fL CALC (80.0-100.0); MEAN CORPUSCULAR HGB 30.6 pG CALC (26.0-32.0); MEAN CORPUSCULAR HGB CONC 32.4 g/L CALC (32.0-36.0); NEUT# 8.54 thou/uL (1.82-7.42); RED BLOOD COUNT 4.83 mill/uL (4.70-6.10); RED CELL DISTRI WIDTH 15.9 % (11.5-15.5)
[2017-06-05 21:31] LABS: ALBUMIN 4.6 g/dL (3.2-5.0); ALKALINE PHOSPHATASE 59 u/l (38-126); ANION GAP 17 (6-22 (CALC)); BILIRUBIN, TOTAL 0.4 mg/dL (0.0-1.4); BUN 15 mg/dL (8-23); BUN/CREATININE RATIO 16 (12-20 (CALC)); CALCIUM 9.7 mg/dL (8.4-10.2); CARBON DIOXIDE 25 mmol/l (22-30); CHLORIDE 105 mmol/l (95-108); CREATININE 0.9 mg/dL (0.7-1.3); GFR > 60 ML/MIN (>=60 (CALC)); GFR FOR AFR.AMER. > 60 ML/MIN (>=60 (CALC)); GLUCOSE 253 mg/dL (82-115); SGOT/AST 23 u/l (19-48); SGPT/ALT 25 u/l (11-66); SODIUM 143 mmol/l (137-146); TOTAL PROTEIN 6.9 g/dL (6.3-8.2)
[2017-06-05 21:36] LABS: ACT PARTIAL THROMBO TIME 24.7 SECONDS (20.0-32.5); PROTHROMBIN TIME 11.4 SECONDS (9.0-12.5)
[2017-06-05 21:43] LABS: MYOGLOBIN 58 ng/mL (0 - 121)
[2017-06-05] MEDS ORDERED: DUONEB IN (22:48)
[2017-06-05] MEDS ORDERED: XANAX0.25 MG PO (22:48)
[2017-06-05] MEDS ORDERED: DEMADEX10 MG PO (22:48)
[2017-06-05] MEDS ORDERED: ARNUITY EL200 MCG/AC (22:49)
[2017-06-05] MEDS ORDERED: BEVESPI AEROSPH1 AER (22:49)
[2017-06-05 23:00] VITALS: BP 114/64
== END 2017-06-05 23:00 | disposition short-term general hospital (02) ==
LOC: ED 20:20
PROVIDERS: Emergency Medicine
PROC: 0BH17EZ Insertion of Endotracheal Airway into Trachea, Via Natural or Artificial Opening (ICD-10-PCS; principal; 2017-06-05)
PROC: 5A1935Z Respiratory Ventilation, Less than 24 Consecutive Hours (ICD-10-PCS; 2017-06-05)
PROC: 0T9B70Z Drainage of Bladder with Drainage Device, Via Natural or Artificial Opening (ICD-10-PCS; 2017-06-05)
DX: J44.1 Chronic obstructive pulmonary disease with (acute) exacerbation (principal); J93.9 Pneumothorax, unspecified; I10 Essential (primary) hypertension; E78.5 Hyperlipidemia, unspecified; I25.10 Atherosclerotic heart disease of native coronary artery without angina pectoris; I25.2 Old myocardial infarction; Z95.5 Presence of coronary angioplasty implant and graft; Z99.81 Dependence on supplemental oxygen; R06.02 Shortness of breath

== ENCOUNTER 2017-08-24 05:05 | Emergency (ER) | payer MEDICARE ==
[~2017-08-24] VITALS: Ht 182.9 cm; Wt 61.4 kg
[~2017-08-24 05:05] MED LIST changes: +ARNUITY EL200 MCG/AC; +BEVESPI AEROSPH1 AER; +DEMADEX10 MG PO; +DUONEB IN; +XANAX0.25 MG PO
[2017-08-24 05:31] LABS: IMMATURE GRANULOCYTES 0.4 % (0.0-1.0); MEAN CELL VOLUME 98.2 fL CALC (80.0-100.0); MEAN CORPUSCULAR HGB 30.8 pG CALC (26.0-32.0); MEAN CORPUSCULAR HGB CONC 31.4 g/L CALC (32.0-36.0); NEUT# 9.88 thou/uL (1.82-7.42); RED BLOOD COUNT 3.89 mill/uL (4.70-6.10)
[2017-08-24 05:42] LABS: HEMATOCRIT 38.2 % (39.0-50.0)
[2017-08-24 05:45] LABS: ALBUMIN 3.8 g/dL (3.2-5.0); ALKALINE PHOSPHATASE 59 u/l (38-126); ANION GAP 14 (6-22 (CALC)); BILIRUBIN, TOTAL 0.5 mg/dL (0.0-1.4); BUN 11 mg/dL (8-23); BUN/CREATININE RATIO 13 (12-20 (CALC)); CARBON DIOXIDE 32 mmol/l (22-30); CHLORIDE 101 mmol/l (95-108); CREATININE 0.9 mg/dL (0.7-1.3); GFR > 60 ML/MIN (>=60 (CALC)); GFR FOR AFR.AMER. > 60 ML/MIN (>=60 (CALC)); SGOT/AST 40 u/l (19-48); SGPT/ALT 41 u/l (11-66); SODIUM 142 mmol/l (137-146); TOTAL PROTEIN 6.5 g/dL (6.3-8.2)
[2017-08-24 05:51] LABS: INTERNATIONAL NORMALIZED RATIO 1.1 RATIO (0.7-1.3); PROTHROMBIN TIME 12.2 SECONDS (9.0-12.5)
[2017-08-24 05:57] LABS: MYOGLOBIN 50 ng/mL (0 - 121)
[2017-08-24 05:59] LABS: POTASSIUM 5.4 mmol/l (3.5-5.1)
[2017-08-24] MEDS ORDERED: BEVESPI AEROSPH1 AER IN (06:14)
[2017-08-24] MEDS ORDERED: ARNUITY EL200 MCG/AC IN (06:14)
[2017-08-24] MEDS ORDERED: DUONEB IN (06:15)
[2017-08-24] MEDS ORDERED: PLAVIX75 MG PO (06:16)
[2017-08-24] MEDS ORDERED: PROAIR HFA108 MCG/AC IN (06:18)
[2017-08-24] MEDS ORDERED: SOTALOL AF80 MG PO (06:20)
[2017-08-24] MEDS ORDERED: LIPITOR20 MG PO (06:21)
[2017-08-24 07:00] VITALS: BP 112/58
== END 2017-08-24 07:23 | disposition short-term general hospital (02) ==
LOC: ED 05:05
PROVIDERS: Emergency Medicine
PROC: 0BH17EZ Insertion of Endotracheal Airway into Trachea, Via Natural or Artificial Opening (ICD-10-PCS; principal; 2017-08-24)
PROC: 0T9B70Z Drainage of Bladder with Drainage Device, Via Natural or Artificial Opening (ICD-10-PCS; 2017-08-24)
PROC: 5A1935Z Respiratory Ventilation, Less than 24 Consecutive Hours (ICD-10-PCS; 2017-08-24)
DX: J96.90 Respiratory failure, unspecified, unspecified whether with hypoxia or hypercapnia (principal); J44.1 Chronic obstructive pulmonary disease with (acute) exacerbation; E87.2 Acidosis; I71.4 Abdominal aortic aneurysm, without rupture
CPT/HCPCS: J2060